=== PATIENT | male | born 1950 | race Caucasian/White ===

== ENCOUNTER 2016-12-13 09:12 | Outpatient (CLI) | payer MEDICARE, OTHER | END 2016-12-13 09:13 | disposition home or self-care (01) | LOC: SC 09:12 | PROVIDERS: ATTEND Internal Medicine Pulmonary Disease | DX: G47.33 Obstructive sleep apnea (adult) (pediatric) (principal) | CPT/HCPCS: 99203; G0463; 99212 ==

== ENCOUNTER 2017-01-21 22:23 | Outpatient (CLI) | payer MEDICARE, OTHER | END 2017-01-21 22:24 | disposition home or self-care (01) | LOC: SC 22:23 | PROVIDERS: ATTEND Internal Medicine Pulmonary Disease | DX: G47.33 Obstructive sleep apnea (adult) (pediatric) (principal); G47.61 Periodic limb movement disorder | CPT/HCPCS: 95811 ==

== ENCOUNTER 2017-02-21 09:25 | Outpatient (CLI) | payer MEDICARE, OTHER | END 2017-02-21 09:26 | disposition home or self-care (01) | LOC: SC 09:25 | PROVIDERS: ATTEND Nurse Practitioner Family | DX: G47.33 Obstructive sleep apnea (adult) (pediatric) (principal) | CPT/HCPCS: 99214; G0463; 99212 ==

== ENCOUNTER 2017-02-26 19:25 | Outpatient (CLI) | payer MEDICARE, OTHER | END 2017-02-26 19:26 | disposition home or self-care (01) | LOC: SC 19:25 | PROVIDERS: ATTEND Internal Medicine Pulmonary Disease | DX: G47.33 Obstructive sleep apnea (adult) (pediatric) (principal) | CPT/HCPCS: 95811 ==

== ENCOUNTER 2017-04-18 11:05 | Outpatient (CLI) | payer MEDICARE, OTHER | END 2017-04-18 11:06 | disposition home or self-care (01) | LOC: SC 11:05 | PROVIDERS: ATTEND Nurse Practitioner Family | DX: G47.33 Obstructive sleep apnea (adult) (pediatric) (principal) | CPT/HCPCS: 99214; G0463; 99212 ==

== ENCOUNTER 2017-06-16 08:41 | Outpatient (CLI) | payer MEDICARE, OTHER | END 2017-06-16 08:42 | disposition home or self-care (01) | LOC: SC 08:41 | PROVIDERS: ATTEND Nurse Practitioner Family | DX: G47.33 Obstructive sleep apnea (adult) (pediatric) (principal) | CPT/HCPCS: 99214; G0463; 99212 ==

== ENCOUNTER 2018-06-19 08:28 | Outpatient (CLI) | payer MEDICARE, OTHER | END 2018-06-19 08:29 | disposition home or self-care (01) | LOC: SC 08:28 | PROVIDERS: ATTEND Nurse Practitioner Family | DX: G47.33 Obstructive sleep apnea (adult) (pediatric) (principal) | CPT/HCPCS: 99214; G0463; 99212 ==

== ENCOUNTER 2019-08-01 16:42 | Outpatient (CLI) | payer MEDICARE, BC ==
--- NOTE | 2019-08-01 16:40 | SLEEP CARE CONSULTATION ---
Information from patient questionnaire entered by Loretta Penn. I have reviewed and concur with the information entered by Loretta Penn. This document represents the service I personally performed and the decisions made by me, Keira Sotomayor, RN, MSN, OBGYN SPECIALIST. History of Present Illness Service Date and Time: 08/01/2019 1600 Previous diagnosis: Extremely Severe, Obstructive Sleep Apnea-Hypopnea Syndrome AHI: 94.2 Reason for follow up: annual (last seen 06/2018) Equipment type: CPAP Equipment obtained from: [facility] (difficulty getting supplies despite repeated attempts, supplies not ready when informed and delay in retrieving) Mask style: Full face Backup mask available: Yes (old mask ) Last cushion change: about a month CPAP Compliance Data - Data Reviewed with Patient Average duration of nightly device use: 8.9 Compliance rate %: 100 (180 days) Current pressure setting (cmH2O): 14 Humidity settin Heated hose settin Average residual AHI: 4.8 Average large leak: 38 min 47 sec Subjective Patient concerns: reports: air blowing in eyes (rare ), nasal congestion (in past with increase in pollen / purchased the so Clean device after much research ). denies: aerophagia, mask discomfort, mask leak noise, condensation in mask/hose, dry mouth, nose, throat, epistaxis, other Observed to snore while using device: No Current pressure setting perceived as: comfortable On therapy, patient: reports: sleeping better, awakening more refreshed, being more awake and alert during the day, more rested overall. denies: drowsiness while driving Initial [place] Sleepiness Scale score: 3 Review of Systems Review of systems same as previous: No (sinus infection now resolved) Physical Exam Height: 6 ft 3.5 in Weight: 280 lb Body Mass Index: 34.5 BMI Classification: Obese Impression and Plan 1. Obstructive Sleep Apnea-Hypopnea Syndrome, extremely severe, with excellent treatment compliance and good apnea control. On CPAP therapy, the patient has better sleep quality and is more rested overall. He is very pleased with benefit of treatment. He has noted increased sleep disruption since partially retired and getting more sleep. I advised him to reduce sleep to 8.5 hours instea of 9 hours average. I explained how most people require 7-9 hours and perhaps he is getting too much sleep causing sleep disruption. He is instead to get out of bed when first awakens instead of dosing. For patient supply concerns. Patient was notified that another DME can be used. I will have my community health program coordinator inform of DME options. A DWO prescription will then be made. Patient advised to contact this office if further supply problems. Since he just obtained a cleaning device, I informed him of new FDA warnings and to check the FDA site. Patient states he did a lot of research before buying this device and had reduced ozone risk due to filter system. To reduce mask leaks, he is advised to slightly tighten mask. Patient is advised to lose weight due to BMI 34.5 obesity and increase of health risks. I explained how his weight affects his apnea risk and CPAP pressure requirements and symptoms to report to change his CPAP pressure. Patient's apnea severity and rationale for treatment to reduce apnea, improve sleep quality and reduce hypertension, cardiovascular and cerebrovascular events was reviewed. * Transfer of care * Continue CPAP pressure at 14 cmH20 * Notify me if snoring with mask or feeling that the pressure is too much or too little * Attempt to lose weight * reduce time in bed. * adjust mask. * Call this office if any problems using CPAP * Return for follow up in 1 year , or sooner if concerns arise Visit Type: Telehealth Phone Patient Location: Home Location of Provider: Home Patient agrees and consents to this telehealth visit type: Yes Patient agrees to have their insurance billed: Yes Time Spent with Patient (minutes): 10 Provider Statement: I spent 100% of the Telehealth Phone Call with the patient with greater than 50% spent counseling the patient and coordination of care.
== END 2019-08-01 16:43 | disposition home or self-care (01) ==
LOC: SC 16:42
PROVIDERS: ATTEND Nurse Practitioner Family
DX: G47.33 Obstructive sleep apnea (adult) (pediatric) (principal); E66.9 Obesity, unspecified; Z68.34 Body mass index [BMI] 34.0-34.9, adult

== ENCOUNTER 2020-05-12 07:24 | Outpatient (CLI) | payer MEDICARE, BC ==
[2020-05-12 11:53] LABS: BASOPHILS % (AUTO) 0.5 %; EOSINOPHILS # (AUTO) 0.2 10^3/uL (0.0-0.7); EOSINOPHILS % (AUTO) 4.3 %; HGB - HEMOGLOBIN 15.3 g/dL (14.0-18.0); LYMPHOCYTES # (AUTO) 1.5 10^3/uL (1.5-3.5); MEAN CORPUSCULAR HEMOGLOBIN 29.5 pg (27.0-31.0); MEAN CORPUSCULAR HGB CONC 32.1 g/dL (32.0-36.0); MEAN CORPUSCULAR VOLUME 91.9 fL (80.0-94.0); MEAN PLATELET VOLUME 10.2 fL (7.4-11.4); MONOCYTES # (AUTO) 0.5 10^3/uL (0.0-1.0); MONOCYTES % (AUTO) 8.5 %; NEUTROPHILS # (AUTO) 3.3 10^3/uL (1.5-6.6); NEUTROPHILS % (AUTO) 59.5 %; PLT - PLATELET COUNT 284 10^3/uL (130-450); RED BLOOD COUNT 5.19 10^6/uL (4.70-6.10); RED CELL DISTRIBUTION WIDTH 12.9 % (12.0-15.0); WHITE BLOOD COUNT 5.6 x10^3/uL (4.8-10.8)
[2020-05-12 12:11] LABS: ALBUMIN 4.4 g/dL (3.2-5.5); ALBUMIN/GLOBULIN RATIO 1.3 (1.0-2.2); ALKALINE PHOSPHATASE 65 IU/L (42-121); ALT ALANINE AMINOTRANSFERASE 17 IU/L (10-60); AST ASPARTATE AMINOTRANSFERASE 17 IU/L (10-42); BILIRUBIN,TOTAL 0.8 mg/dL (0.2-1.0); BUN - BLOOD UREA NITROGEN 15 mg/dL (6-20); CALCIUM 9.8 mg/dL (8.5-10.3); CARBON DIOXIDE - CO2 25 mmol/L (21-32); CHLORIDE 103 mmol/L (101-111); CHOLESTEROL 194 mg/dL; CREATININE 0.9 mg/dL (0.6-1.2); GLUCOSE 92 mg/dL (70-100); HDL CHOLESTEROL 48 mg/dL; LDL CHOLESTEROL,CALCULATED 126 mg/dL; LDL/HDL RATIO 2.6 (<3.6); TOTAL PROTEIN 7.8 g/dL (6.7-8.2); VLDL CHOLESTEROL 20 mg/dL
== END 2020-05-12 07:25 | disposition home or self-care (01) ==
LOC: LAB.N 07:24
PROVIDERS: ATTEND Nurse Practitioner Family
DX: I10 Essential (primary) hypertension (principal); Z12.5 Encounter for screening for malignant neoplasm of prostate
CPT/HCPCS: 36415; 80053; 80061; 84443; 85025; G0103; 83721; 84153

== ENCOUNTER 2020-07-25 15:41 | Outpatient (CLI) | payer MEDICARE, BC ==
--- NOTE | 2020-07-25 16:02 | SLEEP CARE CONSULTATION ---
Information from patient questionnaire entered by Octavia Collins. I have reviewed and concur with the information entered by Octavia Collins. This document represents the service I personally performed and the decisions made by me, Jessica Monsivais ARNP. History of Present Illness Service Date and Time: 07/25/2020 1541 Previous diagnosis: Extremely Severe, Obstructive Sleep Apnea-Hypopnea Syndrome AHI: 94.2 Reason for follow up: annual (Last seen 07/2019) Equipment type: [facility]AP [facility] Mask style: Full face Backup mask available: Yes (old mask) Last cushion change: 2 weeks ago Year and Where: 2016 [facility] Type of Sleep Study: Polysomnography HPI additional information: VEDA WOODS was diagnosed to have extremely severe, AHI 94.2, obstructive sleep apnea-hypopnea syndrome and returned today for CPAP therapy annual follow-up. CPAP Compliance Data - Data Reviewed with Patient Average duration of nightly device use: 9 h 18min Compliance rate %: 100 Current pressure setting (cmH2O): 14 Average residual AHI: 4.6 Average large leak: 21 min 59 sec Subjective Patient concerns: denies: aerophagia, mask discomfort, air blowing in eyes, mask leak noise, condensation in mask/hose, nasal congestion, dry mouth, nose, throat, epistaxis, other Observed to snore while using device: No Current pressure setting perceived as: comfortable On therapy, patient: reports: sleeping better, awakening more refreshed, being more awake and alert during the day, more rested overall. denies: drowsiness while driving Initial [place] Sleepiness Scale score: 3 (in 2017) Current [place] Sleepiness Scale score: 3 Allergies and Home Medications Home medication list reviewed: Yes (no new meds) Review of Systems Review of systems same as previous: Yes (no changes) Physical Exam Heart Rate: 65 O2 Saturation: 96 Height: 6 ft 3.5 in Weight: 286 lb Weight change since last visit: 6 lb gain Body Mass Index: 35.2 BMI Classification: Obese Impression and Plan 1. Obstructive Sleep Apnea-Hypopnea Syndrome, extremely severe, with excellent treatment compliance and good apnea control. On CPAP therapy, the patient has better sleep quality and is more rested overall. He has significant improvement of his sleep apnea and he is satisfied with his treatment. He states he can't sleep without it. He has no concerns or issues needing addressed today. He was encouraged to try to lose weight. Patient's apnea severity and rationale for treatment to reduce apnea, improve sleep quality and reduce cardiovascular and cerebrovascular events was reviewed. I also reviewed the benefit of consistent device use of CPAP for hypertension. * Continue auto CPAP pressure at 14 cmH2O * Notify me if snoring with mask or feeling that the pressure is too much or too little * Attempt to lose weight * Call this office if any problems using CPAP * Return for follow up in 1 year, or sooner if concerns arise Counseling Topics: Spare mask, Weight loss health impact Visit Type: In Office Time Spent with Patient (minutes): 13 Provider Statement: I spent 100% of the Face to Face Visit with the patient with greater than 50% spent counseling the patient and coordination of care.
== END 2020-07-25 15:42 | disposition home or self-care (01) ==
LOC: SC 15:41
PROVIDERS: ATTEND Nurse Practitioner Family
DX: G47.33 Obstructive sleep apnea (adult) (pediatric) (principal); E66.9 Obesity, unspecified; Z68.35 Body mass index [BMI] 35.0-35.9, adult
CPT/HCPCS: 99212; G0463

== ENCOUNTER 2021-04-30 08:36 | Outpatient (CLI) | payer BC, MEDICARE ==
[2021-04-30 12:30] LABS: BASOPHILS % (AUTO) 0.7 %; EOSINOPHILS # (AUTO) 0.3 10^3/uL (0.0-0.7); EOSINOPHILS % (AUTO) 4.9 %; HCT - HEMATOCRIT 46.2 % (42.0-52.0); HGB - HEMOGLOBIN 15.3 g/dL (14.0-18.0); LYMPHOCYTES # (AUTO) 1.4 10^3/uL (1.5-3.5); LYMPHOCYTES % (AUTO) 23.9 %; MEAN CORPUSCULAR HEMOGLOBIN 30.2 pg (27.0-31.0); MEAN CORPUSCULAR HGB CONC 33.1 g/dL (32.0-36.0); MEAN CORPUSCULAR VOLUME 91.3 fL (80.0-94.0); MEAN PLATELET VOLUME 10.3 fL (7.4-11.4); MONOCYTES # (AUTO) 0.5 10^3/uL (0.0-1.0); MONOCYTES % (AUTO) 7.8 %; NEUTROPHILS # (AUTO) 3.7 10^3/uL (1.5-6.6); NEUTROPHILS % (AUTO) 62.4 %; PLT - PLATELET COUNT 277 10^3/uL (130-450); RED BLOOD COUNT 5.06 10^6/uL (4.70-6.10); RED CELL DISTRIBUTION WIDTH 12.9 % (12.0-15.0); WHITE BLOOD COUNT 5.9 x10^3/uL (4.8-10.8)
[2021-04-30 12:55] LABS: ALBUMIN 4.3 g/dL (3.2-5.5); ALBUMIN/GLOBULIN RATIO 1.3 (1.0-2.2); ALKALINE PHOSPHATASE 56 IU/L (42-121); ALT ALANINE AMINOTRANSFERASE 17 IU/L (10-60); AST ASPARTATE AMINOTRANSFERASE 19 IU/L (10-42); BILIRUBIN,TOTAL 0.8 mg/dL (0.2-1.0); BUN - BLOOD UREA NITROGEN 21 mg/dL (6-20); CALCIUM 9.6 mg/dL (8.5-10.3); CARBON DIOXIDE - CO2 27 mmol/L (21-32); CHLORIDE 104 mmol/L (101-111); CHOL/HDL RATIO 3.9 (<5.0); CHOLESTEROL 170 mg/dL; CREATININE 0.7 mg/dL (0.6-1.2); GFR - MDRD 111 (>89); GLUCOSE 96 mg/dL (70-100); HDL CHOLESTEROL 44 mg/dL; LDL CHOLESTEROL,CALCULATED 105 mg/dL; LDL/HDL RATIO 2.4 (<3.6); POTASSIUM 4.2 mmol/L (3.5-5.0); SODIUM 141 mmol/L (135-145); TOTAL PROTEIN 7.5 g/dL (6.7-8.2); TRIGLYCERIDES 105 mg/dL; VLDL CHOLESTEROL 21 mg/dL
== END 2021-04-30 08:37 | disposition home or self-care (01) ==
LOC: LAB.N 08:36
PROVIDERS: ATTEND Internal Medicine
DX: I10 Essential (primary) hypertension (principal); R97.20 Elevated prostate specific antigen [PSA]
CPT/HCPCS: 36415; 80053; 80061; 83721; 84153; 85025

== ENCOUNTER 2021-10-09 15:15 | Outpatient (CLI) | payer BC, MEDICARE ==
[2021-10-09 15:58] VITALS: BP 165/90
--- NOTE | 2021-10-09 15:58 | SLEEP CARE CONSULTATION ---
Information from patient questionnaire entered by Melly Montiel MA. I have reviewed and concur with the information entered by Melly Montiel MA. This document represents the service I personally performed and the decisions made by , Jessica Monsivais ARNP. History of Present Illness Service Date and Time: 10/09/2021 1515 Previous diagnosis: Extremely Severe, Obstructive Sleep Apnea-Hypopnea Syndrome AHI: 94.2 Reason for follow up: annual (LAST SEEN 07/2020, YOLETTE, CHANCE 05/02/2017) Equipment type: CPAP Equipment obtained from: [employer] (getting supplies as needed) Mask style: Full face Mask brand: Resmed Backup mask available: Yes (old mask) Last cushion change: 1 week Year and Where: 2016 [facility] Type of Sleep Study: Polysomnography HPI additional information: VEDA WOODS was diagnosed to have extremely severe, AHI 94.2, obstructive sleep apnea-hypopnea syndrome and returned today for CPAP therapy annual follow-up. Sleep Study - Results Type of Sleep Study: Polysomnography Year and Where: 2016 [facility] CPAP Compliance Data - Data Reviewed with Patient Average duration of nightly device use: 9 HOURS 34 MINUTES Compliance rate %: 98.9 (07/10/21-10/07/21; 89/90 days used) Current pressure setting (cmH2O): 16 Humidity setting: OFF Heated hose setting: OFF Average residual AHI: 3.8 Average large leak: 3.8 Compliance data discussion: Just started using a mask cushion barrier with less leaks around mask. Subjective Missed days of use due to: reports: illness, other (power outage) Patient concerns: denies: aerophagia, mask discomfort, air blowing in eyes, mask leak noise, condensation in mask/hose, nasal congestion, dry mouth, nose, throat, epistaxis, other Observed to snore while using device: No Current pressure setting perceived as: comfortable On therapy, patient: reports: sleeping better, awakening more refreshed, being more awake and alert during the day, more rested overall. denies: drowsiness while driving Initial [place] Sleepiness Scale score: 3 (in 2017) Current [place] Sleepiness Scale score: 0 (10/09/21) Allergies and Home Medications Known drug allergies: Yes (MORPHINE) Home medication list reviewed: Yes (no changes) Review of Systems Review of systems same as previous: Yes (no changes) Physical Exam Vital signs obtained and entered by: NACHO ZHENG Blood Pressure: 165/90 (RESP 20, PULSE 68, LEFT) Cuff size: wrist Heart Rate: 67 O2 Saturation: 96 (N95) Height: 6 ft 3.5 in Weight: 285 lb (CLOTHES) Weight change since last visit: LOSE - HEALTHY DIET AND STAYING ACTIVE Body Mass Index: 35.1 BMI Classification: Obese Impression and Plan 1. Obstructive Sleep Apnea-Hypopnea Syndrome, extremely severe, with good treatment compliance and good apnea control. On CPAP therapy, the patient has better sleep quality and is more rested overall. Patient denies problems with oral dryness, nasal congestion, epistaxis, skin irritation or aerophagia. Patient has a DreamStation that was last updated April 2017. He will be eligible for a new machine in April 2022. Patient has registered his device with [employer] but has not heard anything back about a replacement. He is using an inline filter but had to have the pressure increased due to it restricting his pressure. He is comfortable with current pressure. Patient's apnea severity and rationale for treatment to reduce apnea, improve sleep quality and reduce cardiovascular and cerebrovascular events was reviewed. I also reviewed the benefit of consistent device use of CPAP for hypertension. 2. Obesity, unspecified. Currently patients BMI is 35.1. Obesity increases the risk of apnea, CPAP pressure requirements and overall health risks especially cardiovascular and diabetes. Thus patient is advised to lose weight. Weight loss can be done with reducing portion size, reducing refined foods and balancing content with vegetables, fruit and whole grain foods. In addition, patient encouraged to get regular exercise. * Continue CPAP pressure at 16 cmH2O * Notify me if snoring with mask or feeling that the pressure is too much or too little * Attempt to lose weight * Call this office if any problems using CPAP * Return for follow up in 1 year, or sooner if concerns arise Counseling Topics: Spare mask, Weight loss health impact Visit Type: In Office Time Spent with Patient (minutes): 21 Provider Statement: I spent 100% of the Face to Face Visit with the patient with greater than 50% spent counseling the patient and coordination of care.
== END 2021-10-09 15:16 | disposition home or self-care (01) ==
LOC: SC 15:15
PROVIDERS: ATTEND Nurse Practitioner Family
DX: G47.33 Obstructive sleep apnea (adult) (pediatric) (principal); E66.9 Obesity, unspecified; Z68.35 Body mass index [BMI] 35.0-35.9, adult
CPT/HCPCS: 99212; 99213

== ENCOUNTER 2022-10-13 13:35 | Outpatient (CLI) | payer MEDICARE ==
--- NOTE | 2022-10-13 14:18 | Sleep Patient Instructions ---
Sleep Center Visit Summary - Patient Visit Information Reason for Visit: Annual visit for PAP therapy - Patient Instructions Additional Instructions: You will continue with CPAP therapy with pressure changed to 17 cmH2O. A supply prescription will be updated with your DME. We are also updating your CPAP machine, please call when you have new device to set up followup. We encourage you to continue to try to lose weight. Please follow up with the sleep care office once month after obtaining new device. - Clinic Information Contact: [facility] [address] [place] [email or web address] T: [phone]
--- NOTE | 2022-10-13 14:24 | SLEEP CARE CONSULTATION ---
Information from patient questionnaire entered by Alexander Marte. I have reviewed and concur with the information entered by Alexander Marte. This document represents the service I personally performed and the decisions made by me, Jessica Monsivais ARNP. History of Present Illness Service Date and Time: 10/13/2022 1335 Previous diagnosis: Extremely Severe, Obstructive Sleep Apnea-Hypopnea Syndrome AHI: 94.2 Reason for follow up: annual (LAST SEEN 09/2021) Equipment type: CPAP (CASTRO Dreamstation 2) Equipment obtained from: [employer] (getting supplies as needed) Mask style: Full face Mask brand: Resmed (F20) Backup mask available: Yes (other mask) Last cushion change: 2 weeks Year and Where: 2016 [facility] Type of Sleep Study: Polysomnography HPI additional information: VEDA WOODS was diagnosed to have extremely severe, AHI 94.2, obstructive sleep apnea-hypopnea syndrome and returned today for CPAP therapy annual follow-up. Sleep Study - Results Type of Sleep Study: Polysomnography Year and Where: 2016 [facility] CPAP Compliance Data - Data Reviewed with Patient Average duration of nightly device use: 9 HRS 25 MIN 48 SEC Compliance rate %: 100 (04/13/22-10/09/22; 180/180 days used) Current pressure setting (cmH2O): 16 Average residual AHI: 5.3 (RERA 1.6) Central apnea: 0.2 Obstructive apnea: 3.1 Hypopnea: 2 Average large leak: 11 mins 8 secs Subjective Patient concerns: reports: mask discomfort (pain in back of neck from headgear), air blowing in eyes, mask leak noise. denies: aerophagia, condensation in mask/hose, nasal congestion, dry mouth, nose, throat, epistaxis Observed to snore while using device: No Current pressure setting perceived as: comfortable On therapy, patient: reports: sleeping better, awakening more refreshed, being more awake and alert during the day, more rested overall. denies: drowsiness while driving Initial [place] Sleepiness Scale score: 3 (in 2017) Current [place] Sleepiness Scale score: 1 (10/13/22) Allergies and Home Medications Known drug allergies: No Drug allergies reviewed: Yes Home medication list reviewed: Yes (no changes) Review of Systems Review of systems same as previous: Yes (no changes) Physical Exam Vital signs obtained and entered by: ALEXANDER Mendoza MA Blood Pressure: 128/64 (LEFT ARM) Cuff size: regular Heart Rate: 66 O2 Saturation: 95 Height: 6 ft 3.5 in Weight: 281 lb 12.8 oz Body Mass Index: 34.7 BMI Classification: Obese Impression and Plan 1. Obstructive Sleep Apnea-Hypopnea Syndrome, extremely severe, with good treatment compliance and good apnea control with minimal elevation of residual AHI. On CPAP therapy, the patient has better sleep quality and is more rested overall. He states lately his fullface mask, F20, is not sealing well and he is getting leaks into his eyes. He would like to try a different style of mask also because the headgear is causing pain on the back of his head where it rests. I showed him a few different options and fitted him to a [employer] Simplus, large cushion. He felt this was comfortable and will take this home and try it. If he likes it, he will order more from his DME supplier. He last updated his device in 04/2017. The patients CPAP is over 5 years old and of reasonable use. Thus, the CPAP will be updated. A DWO prescription will be made. Compliance guidelines for new device and follow up discussed. The patients pressure will be changed to autoCPAP 17 cmH20 for elevation of residual AHI. Patient advised to contact me if pressure change is uncomfortable so that it can be adjusted. Goals for apnea control discussed. Patient's apnea severity and rationale for treatment to reduce apnea, improve sleep quality and reduce cardiovascular and cerebrovascular events was reviewed. I also reviewed the benefit of consistent device use of CPAP for hypertension. 2. Obesity, unspecified. Currently patients BMI is 34.7. Obesity increases the risk of apnea, CPAP pressure requirements and overall health risks especially cardiovascular and diabetes. Thus patient is advised to lose weight. * Update machine * Change auto CPAP pressure to 17 cmH2O * F&P Simplus, large cushion, fitted in office and sample sent home with patient to try * Update supplies * Notify me if snoring with mask or feeling that the pressure is too much or too little * Attempt to lose weight * Call this office if any problems using CPAP * Return for follow up one month after obtaining new device, or sooner if concerns arise Counseling Topics: Spare mask, Weight loss health impact Visit Type: In Office Time Spent with Patient (minutes): 29 Provider Statement: I spent 100% of the Face to Face Visit with the patient with greater than 50% spent counseling the patient and coordination of care.
[2022-10-13 14:33] VITALS: BP 128/64
== END 2022-10-13 13:36 | disposition home or self-care (01) ==
LOC: SC 13:35
PROVIDERS: ATTEND Nurse Practitioner Family
DX: G47.33 Obstructive sleep apnea (adult) (pediatric) (principal); E66.9 Obesity, unspecified; Z68.34 Body mass index [BMI] 34.0-34.9, adult
CPT/HCPCS: 99213; G0463; 99212

== ENCOUNTER 2023-02-26 09:14 | Outpatient (CLI) | payer MEDICARE ==
[2023-02-26 18:40] LABS: BASOPHILS % (AUTO) 0.6 %; EOSINOPHILS # (AUTO) 0.2 10^3/uL (0.0-0.7); EOSINOPHILS % (AUTO) 4.2 %; HCT - HEMATOCRIT 46.9 % (42.0-52.0); HGB - HEMOGLOBIN 14.4 g/dL (14.0-18.0); LYMPHOCYTES # (AUTO) 1.4 10^3/uL (1.5-3.5); LYMPHOCYTES % (AUTO) 26.6 %; MEAN CORPUSCULAR HEMOGLOBIN 29.1 pg (27.0-31.0); MEAN CORPUSCULAR HGB CONC 30.7 g/dL (32.0-36.0); MEAN CORPUSCULAR VOLUME 94.9 fL (80.0-94.0); MEAN PLATELET VOLUME 10.8 fL (7.4-11.4); MONOCYTES # (AUTO) 0.4 10^3/uL (0.0-1.0); MONOCYTES % (AUTO) 7.7 %; NEUTROPHILS # (AUTO) 3.1 10^3/uL (1.5-6.6); NEUTROPHILS % (AUTO) 60.7 %; PLT - PLATELET COUNT 288 10^3/uL (130-450); RED BLOOD COUNT 4.94 10^6/uL (4.70-6.10); RED CELL DISTRIBUTION WIDTH 13.2 % (12.0-15.0); WHITE BLOOD COUNT 5.2 x10^3/uL (4.8-10.8)
[2023-02-26 18:48] LABS: ALBUMIN 4.6 g/dL (3.2-5.5); ALBUMIN/GLOBULIN RATIO 1.6 (1.0-2.2); ALKALINE PHOSPHATASE 55 IU/L (42-121); ALT ALANINE AMINOTRANSFERASE 18 IU/L (10-60); AST ASPARTATE AMINOTRANSFERASE 18 IU/L (10-42); BILIRUBIN,TOTAL 0.7 mg/dL (0.2-1.0); BUN - BLOOD UREA NITROGEN 18 mg/dL (6-20); CALCIUM 10.2 mg/dL (8.5-10.3); CARBON DIOXIDE - CO2 29 mmol/L (21-32); CHLORIDE 104 mmol/L (101-111); CHOL/HDL RATIO 3.3 (<5.0); CHOLESTEROL 156 mg/dL; CREATININE 0.9 mg/dL (0.6-1.3); GFR - MDRD 83 (>89); GLUCOSE 96 mg/dL (74-104); HDL CHOLESTEROL 47 mg/dL; LDL CHOLESTEROL,CALCULATED 85 mg/dL; LDL/HDL RATIO 1.8 (<3.6); POTASSIUM 4.5 mmol/L (3.5-4.5); SODIUM 139 mmol/L (135-145); TOTAL PROTEIN 7.4 g/dL (6.4-8.9); TRIGLYCERIDES 119 mg/dL (48-352); VLDL CHOLESTEROL 24 mg/dL
== END 2023-02-26 09:15 | disposition home or self-care (01) ==
LOC: LAB.N 09:14
PROVIDERS: ATTEND Internal Medicine
DX: I10 Essential (primary) hypertension (principal); Z13.220 Encounter for screening for lipoid disorders; R97.20 Elevated prostate specific antigen [PSA]
CPT/HCPCS: 36415; 80053; 80061; 83721; 84153; 84154; 85025

== ENCOUNTER 2023-10-14 08:08 | Outpatient (CLI) | payer MEDICARE ==
--- NOTE | 2023-10-14 08:43 | Sleep Patient Instructions ---
Sleep Center Visit Summary - Patient Visit Information Reason for Visit: Annual follow up - Patient Instructions Additional Instructions: You will continue with CPAP therapy with pressure changed to 12-16 cmH2O. A supply prescription will be updated with your DME. We encourage you to continue to try to lose weight. Please follow up with the sleep care office in 1 year. - Clinic Information Contact: [facility] [address] [place] [address] [email or web address] T: [phone]
--- NOTE | 2023-10-14 08:51 | SLEEP CARE CONSULTATION ---
Information from patient questionnaire entered by Alexander Marte. I have reviewed and concur with the information entered by Alexander Marte. This document represents the service I personally performed and the decisions made by me, Jessica Monsivais ARNP. History of Present Illness Service Date and Time: 10/14/2023 0808 Previous diagnosis: Extremely Severe, Obstructive Sleep Apnea-Hypopnea Syndrome AHI: 94.2 Reason for follow up: annual (LAST SEEN 09/2022) Equipment type: CPAP (ResMed Airsense 10, s/u 11/2022) Equipment obtained from: [employer] (getting supplies as needed) Mask style: Full face Mask brand: Resmed (F20; with F&P Simplus headgear) Backup mask available: Yes Last cushion change: 2 days Year and Where: 2016 [facility] Type of Sleep Study: Polysomnography HPI additional information: VEDA WOODS was diagnosed to have extremely severe, AHI 94.2, obstructive sleep apnea-hypopnea syndrome and returned today for CPAP therapy annual follow-up. Sleep Study - Results Type of Sleep Study: Polysomnography Year and Where: 2016 [facility] CPAP Compliance Data - Data Reviewed with Patient Average duration of nightly device use: 9 HRS 25 MINS Compliance rate %: 84 (10/12/22-10/11/23; 100% in last 30 days) Current pressure setting (cmH2O): 16 Average residual AHI: 6.8 Central apnea: 1.2 Obstructive apnea: 0.2 Hypopnea: 5.4 Average large leak: 16.7 L/min (95th) Subjective Missed days of use due to: reports: other (power outage) Patient concerns: reports: mask discomfort, dry mouth, nose, throat. denies: aerophagia, air blowing in eyes, mask leak noise, condensation in mask/hose, nasal congestion, epistaxis Observed to snore while using device: No Current pressure setting perceived as: too high On therapy, patient: reports: sleeping better, awakening more refreshed, being more awake and alert during the day, more rested overall. denies: drowsiness while driving Initial [place] Sleepiness Scale score: 3 (in 2017) Current [place] Sleepiness Scale score: 2 (10/14/23) Allergies and Home Medications Known drug allergies: No Drug allergies reviewed: Yes Home medication list reviewed: Yes (Lisinopril increased dose to 30 mg) Allergy and home medication list: Allergies No Known Drug Allergies Allergy (Verified 10/14/23 08:11) Review of Systems Review of systems same as previous: Yes (NO CHANGE) Physical Exam Vital signs obtained and entered by: ALEXANDER Mendoza MA Blood Pressure: 165/78 (RIGHT ARM) Cuff size: long Heart Rate: 66 O2 Saturation: 96 Height: 6 ft 3.5 in Weight: 268 lb Weight change since last visit: 13 lb lost Body Mass Index: 33.0 BMI Classification: Obese Impression and Plan 1. Obstructive Sleep Apnea-Hypopnea Syndrome, extremely severe, with good treatment compliance and fair apnea control with elevated residual AHI. On CPAP therapy, the patient has better sleep quality and is more rested overall. He feels the pressure is too high and that when his mask leaks the pressure feels better with reduction of AHI numbers. He is checking his numbers every morning. The patients pressure will be changed to autoCPAP 12-16 cmH20 for elevation of residual AHI and patient comfort. Patient advised to contact me if pressure change is uncomfortable so that it can be adjusted. Goals for apnea control discussed. Patient's apnea severity and rationale for treatment to reduce apnea, improve sleep quality and reduce cardiovascular and cerebrovascular events was reviewed. I also reviewed the benefit of consistent device use of CPAP for hypertension. 2. Obesity, unspecified. Currently patients BMI is 33. He has lost weight by cutting out soda. He says he has lost 30 pounds according to his scale. Obesity increases the risk of apnea, CPAP pressure requirements and overall health risks especially cardiovascular and diabetes. Thus patient is advised to continue to try to lose weight. * Change auto CPAP pressure to 12-16 cmH2O * Update supply prescription * Notify me if snoring with mask or feeling that the pressure is too much or too little * Attempt to lose weight * Call this office if any problems using CPAP * Return for follow up in 12 months, or sooner if concerns arise Adjust device pressure to (cmH2O): 12-16 Counseling Topics: Spare mask, Weight loss health impact Prescriptions: Device supplies Follow up with Sleep Care in: 1 year Visit Type: In Office Time Spent with Patient (minutes): 25 Provider Statement: I spent 100% of the Face to Face Visit with the patient with greater than 50% spent counseling the patient and coordination of care.
[2023-10-14 09:05] VITALS: BP 165/78; O2SAT 96
== END 2023-10-14 08:09 | disposition home or self-care (01) ==
LOC: SC 08:08
PROVIDERS: ATTEND Nurse Practitioner Family
DX: G47.33 Obstructive sleep apnea (adult) (pediatric) (principal); E66.9 Obesity, unspecified; Z68.33 Body mass index [BMI] 33.0-33.9, adult
CPT/HCPCS: 99213; G0463; 99212